=== PATIENT | female | born 1985 | race Caucasian/White ===

== ENCOUNTER 2016-05-17 14:54 | Emergency (ER) | payer OTHER ==
[~2016-05-17] VITALS: Ht 154.9 cm; Wt 87.0 kg
[2016-05-17 15:15] VITALS: BP 130/85; PULSE 79; RESP 18; TEMP 98.9; O2SAT 100
[2016-05-17] MEDS ORDERED: MONT10TA2 PO (15:29)
[2016-05-17] MEDS ORDERED: SERT-129 PO (15:29)
--- NOTE | 2016-05-17 15:32 | PD ---
HPI Chief Complaint: Fall Time Seen by Provider: 15:31 Travel History International Travel<30 days: No Contact w/Intl Traveler<30days: No Traveled to known affect area: No History of Present Illness HPI 30-year-old female patient presents to the ED for evaluation of left knee pain. Onset ~one and a half hours ago after slipping at work. Patient states that floor was wet and she slipped and fell onto her bottom. She states that her left kneecap was "dislocated." She states that she was able to flex and extend the knee and help the kneecap move back into place. She states that she was "born double-jointed" and has had problems with her knee in the past but "never like this." No treatment attempt at home. Patient denies , states that she is currently menstruating COUNTS INCLUDE 234 BEDS AT THE [facility] Social History Tobacco Use: No Allergies-Medications (Allergen,Severity, Reaction): Coded Allergies: No Known Allergies (Unverified , 05/17/16) Reported Meds & Prescriptions Reported Meds & Active Scripts Active Lortab (Hydrocodone-Acetaminophen) 5-325 Mg Tab 1 Tab PO Q6H PRN Baclofen 20 Mg Tab 20 Mg PO TID PRN Ibuprofen 800 Mg Tab 800 Mg PO Q8H Reported Singulair (Montelukast Sodium) 10 Mg Tab 10 Mg PO HS Sertraline (Sertraline HCl) 100 Mg Tab 200 Mg PO DAILY Review of Systems Except as stated in HPI: all other systems reviewed are Neg Physical Exam Narrative GENERAL: Well-nourished, well-developed tearful white female in no acute distress. SKIN: Warm and dry. HEAD: Normocephalic. EYES: No scleral icterus. No injection or drainage. NECK: Supple, trachea midline. No JVD or lymphadenopathy. CARDIOVASCULAR: Regular rate and rhythm without murmurs, gallops, or rubs. RESPIRATORY: Breath sounds equal bilaterally. No accessory muscle use. GASTROINTESTINAL: Abdomen soft, non-tender, nondistended. MUSCULOSKELETAL: No cyanosis, or edema. Focused left lower extremity exam: 2+ DP pulse. Tender to palpation of the superior patellar tendon and medial joint line. Patient is resistant to flexion of the knee. No patellar balloting. No obvious subluxation with flexion and extension. Pain elicited with flexion. Negative varus valgus stress testing. Negative anterior drawer testing. Neurovascularly intact BACK: Nontender without obvious deformity. No CVA tenderness. Data Data Last Documented VS Vital Signs Date Time Temp Pulse Resp B/P Pulse Ox O2 Delivery O2 Flow Rate FiO2 05/17/16 17:12 16 05/17/16 15:30 79 100 Room Air 05/17/16 15:15 98.9 130/85 Orders Knee, Complete (4vws) (05/17/16 15:26) Ice/Cold Pack (05/17/16 15:26) Acetamin-Hydrocod 325-5 Mg ([place] 5-325 (05/17/16 15:45) ^ Knee Immobilizer (05/17/16 16:29) Crutches (05/17/16 16:29) Baclofen ([place]) (05/17/16 17:00) Immobilizer Knee 20 Inch (05/17/16 ) MDM Medical Decision Making Medical Screen Exam Complete: Yes Emergency Medical Condition: Yes Differential Diagnosis Patellar subluxation versus tibial plateau fracture versus ligamentous injury versus other Narrative Course 30-year-old female patient presents to the ED for evaluation of left knee pain. Onset ~one and a half hours ago after slipping at work. Patient states that floor was wet and she slipped and fell onto her bottom. She states that her left kneecap was "dislocated." She states that she was able to flex and extend the knee and help the kneecap move back into place. 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 Focused left lower extremity exam reveals 2+ DP pulse. Tender to palpation of the superior patellar tendon and medial joint line. Patient is resistant to flexion of the knee. No patellar balloting. No obvious subluxation with flexion and extension. Pain elicited with flexion. Negative varus valgus stress testing. Negative anterior drawer testing. Neurovascularly intact. Icepack, baclofen and Lortab were administered. X- rays reveal no acute bony injury. If the patient's account is reliable in its likelihood that she has a patellar tendon injury. She was placed in a knee immobilizer, prescribed Lortab, baclofen and ibuprofen. She was instructed to follow-up with the on-call orthopedist Dr. Delarosa. She was provided with excuse for work. She indicated that she understood the discharge instructions, is agreeable to plan of care. She is stable and discharged home. Diagnosis Primary Impression: Patellar tendon strain Qualified Code: S86.812A - Patellar tendon strain, left, initial encounter Additional Impression: Prepatellar effusion of left knee Referrals: Raymond Delarosa MD Patient Instructions: General Instructions, Knee Immobilizer (ED), Knee Pain ( ED) Additional Instructions: Rest, ice, elevate the extremity. Toe touch weight bearing as tolerated. Do not remove the knee immobilizer until cleared by orthopedist. Apply ice no longer than 10-15 minutes per hour a few times a day. 800 mg ibuprofen every 8 hours as prescribed. Flexeril up to 3 times a day as needed for muscle spasm. Follow up with orthopedist as discussed Return to the ED for any urgent or emergent medical condition. Med/Other Pt SpecificInfo: Prescription(s) given Scripts Hydrocodone-Acetaminophen (Lortab)5-325 Mg Tab1 Tab PO Q6H PRN (PAIN GREATER THAN 6) #10 TAB Ref 0 Prov:Mason Campbell MD 05/17/16 Baclofen 20 Mg Tab20 Mg PO TID PRN (Muscle Spasm) #15 TAB Ref 0 Prov:Florencio Guan MD 05/17/16 Ibuprofen 800 Mg [id number] Mg PO Q8H #21 TAB Ref 0 Prov:Florencio Guan MD 05/17/16 Disposition: 01 DISCHARGE HOME Condition: Stable Lisa Pemberton May 17, 2016 15:32
[2016-05-17] MEDS ORDERED: ACETAMINOPHEN/HYDROcodone 325 MG/5 MG TAB PO ONE (15:45)
--- NOTE | 2016-05-17 16:05 | RADHPO ---
EXAM DATE/TIME: 05/17/2016 15:40 [facility] COMPARISON: No previous studies available for comparison. INDICATIONS : Patient fell at work. MEDICAL HISTORY : dislocated left knee SURGICAL HISTORY : None. ENCOUNTER: Initial ACUITY: 1 day PAIN SCORE: 9/10 LOCATION: Left knee FINDINGS: Four view examination of the left knee demonstrates no evidence of fracture or dislocation. Bony min eralization is normal. The articular surfaces are intact. Small suprapatellar effusion.. CONCLUSION: No fracture. Small suprapatellar effusion. Justin Mckee MD on May 17, 2016 at 16:02 Board Certified Radiologist. This report was verified electronically.
[2016-05-17] MEDS ORDERED: BACL20TA PO (16:32)
[2016-05-17] MEDS ORDERED: IBUP800T23 PO (16:32)
[2016-05-17] MEDS ORDERED: HYDR-3533 PO ×2 (16:52→17:06)
[2016-05-17] MEDS ORDERED: BACLOFEN 20 MG TAB PO ONE (17:00)
[2016-05-17 17:12] VITALS: RESP 16
== END 2016-05-17 17:20 | disposition home or self-care (01) ==
LOC: PHEFT 14:54
DX: S86.812A Strain of other muscle(s) and tendon(s) at lower leg level, left leg, initial encounter (principal); W01.0XXA Fall on same level from slipping, tripping and stumbling without subsequent striking against object, initial encounter; Y99.0 Civilian activity done for income or pay
CPT/HCPCS: 73564; 99283; E0113; L1830